=== PATIENT | male | born 1990 | race Caucasian/White ===

== ENCOUNTER 2017-05-19 19:47 | Emergency (ER) | payer SELFPAY ==
[2017-05-19 19:50] VITALS: BP 126/66; PULSE 92; RESP 20; TEMP 99.1; O2SAT 98
--- NOTE | 2017-05-19 20:27 | PD ---
HPI Chief Complaint: Complaint Time Seen by Provider: 20:10 Travel History International Travel<30 days: No Contact w/Intl Traveler<30days: No Traveled to known affect area: No History of Present Illness HPI 27yo M with PMH of chlamydia 4 years ago that was treated presents to the ED with c/o right testicular pain for 5 days. States pain is dull, constant and sharp when he touches it. Pain is localized and associated with swelling. Denies any fever, chest pain, sob, n/v, abdominal pain, dysuria, hematuria, penile discharge or rash. Pt is sexually active with one partner. Denies any trauma or history of hernia. PFSH Past Medical History Medical History: Denies Significant Hx Diminished Hearing: No Immunizations Current: Yes Tetanus Vaccination: < 5 Years Influenza Vaccination: Yes Past Surgical History Surgical History: No Previous Surgery Social History Alcohol Use: Yes (SOCIALLY) Tobacco Use: No (QUIT 2008) Substance Use: No Allergies-Medications (Allergen,Severity, Reaction): Coded Allergies: No Known Allergies (Verified Allergy, Unknown, 05/19/17) Reported Meds & Prescriptions Reported Meds & Active Scripts Active No Active Prescriptions or Reported Medications Review of Systems Except as stated in HPI: all other systems reviewed are Neg Physical Exam Narrative GENERAL: 27yo M in mild distress. SKIN: Focused skin assessment warm/dry. HEAD: Atraumatic. Normocephalic. CARDIOVASCULAR: Regular rate and rhythm. No murmur appreciated. RESPIRATORY: No accessory muscle use. Clear to auscultation. Breath sounds equal bilaterally. GASTROINTESTINAL: Abdomen soft, non-tender, nondistended. No rebound tenderness or guarding. ; +Right testicular swelling and ttp. No penile rash or discharge. No inguinal hernia palpated. MUSCULOSKELETAL: No obvious deformities. No clubbing. No cyanosis. No edema. NEUROLOGICAL: Awake and alert. No obvious cranial nerve deficits. Motor grossly within normal limits. Normal speech. PSYCHIATRIC: Appropriate mood and affect; insight and judgment normal. Data Data Last Documented VS Vital Signs Date Time Temp Pulse Resp B/P (MAP) Pulse Ox O2 Delivery O2 Flow Rate FiO2 05/19/17 21:52 14 05/19/17 19:50 99.1 92 126/66 (86) 98 Orders Orders Us Testicles W Doppler (05/19/17 ) Ketorolac Inj (Toradol Inj) (05/19/17 20:30) Urinalysis - C+S If Indicated (05/19/17 20:17) Urine Culture (05/19/17 20:30) Ceftriaxone Inj (Rocephin Inj) (05/19/17 22:30) Gc And Chlamydia Pcr (05/19/17 22:16) Doxycycline (Vibramycin) (05/19/17 22:30) Labs Laboratory Tests Test 05/19/17 20:30 Urine Color YELLOW Urine Turbidity CLEAR Urine pH 6.0 Urine Specific [place] 1.011 Urine Protein NEG mg/dL Urine Glucose (UA) NEG mg/dL Urine Ketones NEG mg/dL Urine Occult Blood NEG Urine Nitrite NEG Urine Bilirubin NEG Urine Leukocyte Esterase TRACE Urine WBC 9-14 /hpf Urine WBC Clumps FEW Urine Squamous Epithelial Cells 0-5 /hpf Microscopic Urinalysis Comment CULTURE INDICATED MDM Medical Decision Making Medical Screen Exam Complete: Yes Emergency Medical Condition: Yes Differential Diagnosis Orchitis vs. epididymitis vs. hydrocele Narrative Course 27yo M with right testicular pain and swelling. US scrotum showed testicles appear normal. Mild right hydrocele and questionable increased flow seen in right epididymis which raises possibility of epididymitis. Given clinical exam , will treat for epididymitis. UA showed WBC, think this is from the epididymitis. Pt given ceftriaxone 250mg IM and doxycycline 100mg PO. Pt denies any anal intercourse. Return precautions given. Diagnosis Primary Impression: Epididymitis Referrals: Cuba Garcia DO call for appointment Please follow up with urology clinic if symptoms do not improve. Patient Instructions: General Instructions Departure Forms: Tests/Procedures Additional Instructions: Please follow up with PMD as outpatient. Follow up with urology if symptoms do not improve. Return to the ED if symptoms worsen. Med/Other Pt SpecificInfo: Prescription(s) given Scripts Ibuprofen (Ibuprofen) 600 Mg Tab 600 MG PO Q8H Y for PAIN for 5 Days, #15 TAB 0 Refills Prov: AmadeoRadha 05/19/17 Doxycycline Hyclate (Doxycycline Hyclate) 100 Mg Cap 100 MG PO BID for Infection for 10 Days, #20 CAP 0 Refills Prov: ChildsRadha 05/19/17 Disposition: 01 DISCHARGE HOME Condition: Stable Radha Childs DO May 19, 2017 20:27
[2017-05-19] MEDS ORDERED: KETOROLAC TROMETHAMINE 60 MG/2 ML (IM) VIAL IM ONE (20:30)
[2017-05-19 20:44] LABS: BLOOD, URINE NEG (NEG); GLUCOSE,URINE NEG (NEG); KETONE, URINE NEG (NEG); NITRITE,URINE NEG (NEG)
[2017-05-19 20:53] LABS: URINE COLOR YELLOW (YELLW/STRAW)
[2017-05-19 21:01] LABS: COMMENT (UR) CULTURE INDICATED; CULTURE IF INDICATED CULTURE INDICATED; SQUAMOUS EPITHELIAL CELL URINE 0-5 /hpf (0-5)
--- NOTE | 2017-05-19 21:40 | RADRPT ---
EXAM DATE/TIME: 05/19/2017 20:45 [facility] COMPARISON: No previous studies available for comparison. INDICATIONS : Right testicular pain and swelling. MEDICAL HISTORY : None. Right testicular pain. Right testicular swelling. SURGICAL HISTORY : None. ENCOUNTER: Initial ACUITY: 3 days PAIN SCORE: 4/10 LOCATION: Bilateral testicles. MEASUREMENTS: RIGHT TESTICLE: 4.3 x 3.7 x 2.6cm LEFT TESTICLE: 4.7 x 3.0 x 2.5cm FINDINGS: RIGHT TESTICLE: Homogeneous echotexture without intra or extratesticular mass. Blood flow is symmetric and within no rmal limits. There is a mild hydrocele. No varicocele is seen. Epididymis is within normal limits f or size. There is questionable increased flow seen of the right epididymis. LEFT TESTICLE: Homogeneous echotexture without intra or extratesticular mass. Blood flow is symmetric and within no rmal limits. No hydrocele or varicocele. Epididymis is within normal limits. SCROTUM: Within normal limits. CONCLUSION: Testicles appear normal. There is a mild right hydrocele and questionable increased flow seen of the right epididymis which raises the possibility of epididymitis. Pee Hannah MD on May 19, 2017 at 21:37 Board Certified Radiologist. This report was verified electronically.
[2017-05-19 21:52] VITALS: RESP 14
[2017-05-19] MEDS ORDERED: DOXY100C PO (22:24)
[2017-05-19] MEDS ORDERED: IBUP-232 PO (22:24)
[2017-05-19] MEDS ORDERED: DOXYCYCLINE HYCLATE 100 MG CAP PO ONE (22:30)
[2017-05-19] MEDS ORDERED: cefTRIAXone 250 MG VIAL IM ONE (22:30)
[2017-05-19] MEDS ORDERED: LIDOCAINE HCL 1% 50 ML VIAL XX ONE (22:45)
[2017-05-19 23:00] VITALS: BP 130/65; TEMP 98.7
[2017-05-20 10:25] LABS: CHLAMYDIA PCR DETECTED (NOT DETECT); NEISSERIA PCR NOT DETECTED (NOT DETECT)
== END 2017-05-19 23:04 | disposition home or self-care (01) ==
LOC: PHED 19:47
DX: N45.1 Epididymitis (principal)
CPT/HCPCS: 76870; 81001; 87086; 87491; 87591; 93975; 96372; 99285; J0696; J1885